=== PATIENT | male | born 1965 ===

== ENCOUNTER 2017-07-01 14:00 | Emergency (ER) | payer OTHER ==
[2017-07-01 14:19] VITALS: BP 142/86; PULSE 68; RESP 18; TEMP 96; O2SAT 100
--- NOTE | 2017-07-01 15:11 | ED PDOC ---
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 denies: Fever, Chills, Diarrhea, Back Pain, Chest Pain, Constipation, Urinary Symptoms Exacerbating Factors: None Alleviating Factors: None Last Bowel Movement: Yesterday Additional History Per: Patient Additional Complaint(s): no trauma no urinary or genital complaints Past Medical History Reviewed: Historical Data, Nursing Documentation, Vital Signs Vital Signs: Last Vital Signs Temp 96 F L 07/01/17 14:17 Pulse 68 07/01/17 14:17 Resp 18 07/01/17 14:17 BP 142/86 07/01/17 14:17 Pulse Ox 100 07/01/17 18:51 - Medical History PMH: No Chronic Diseases - Family History Family History: States: Unknown Family Hx - Living Arrangements Living Arrangements: With Family - Social History Current smoker - smoking cessation education provided: No Drugs: Denies - Home Medications Home Medications: Ambulatory Orders Medication Instructions Recorded Tamsulosin [Flomax] 0.4 mg PO DAILY #20 cap 07/01/17 oxyCODONE/Acetaminophen [Percocet 1 ea PO QID PRN #20 tab 07/01/17 5/325 mg Tab] - Allergies Allergies/Adverse Reactions: Allergies Allergy/AdvReac Type Severity Reaction Status Date / Time No Known Allergies Allergy Verified 07/01/17 14:17 Review of Systems ROS Statement: Except As Marked, All Systems Reviewed And Found Negative Constitutional: Negative for: Fever, Chills Cardiovascular: Negative for: Chest Pain, Palpitations Respiratory: Negative for: Cough, Shortness of Breath Gastrointestinal: Positive for: Nausea, Vomiting, Abdominal Pain. Negative for : Diarrhea, Constipation, Melena, Hematochezia, Hematemesis Genitourinary Male: Negative for: Dysuria, Penile Discharge, Scrotal Pain Neurological: Positive for: Dizziness. Negative for: Weakness, Numbness, Headache Physical Exam - Reviewed Nursing Documentation Reviewed: Yes Vital Signs Reviewed: Yes - Physical Exam Appears: Positive for: Uncomfortable Head Exam: Positive for: ATRAUMATIC, NORMAL INSPECTION, NORMOCEPHALIC Eye Exam: Positive for: Normal appearance, EOMI, PERRL Neck: Positive for: Normal, Painless ROM, Supple Cardiovascular/Chest: Positive for: Regular Rate, Rhythm, Chest Non Tender. Negative for: Edema, Gallop, Murmur, Bradycardia, Tachycardia Respiratory: Positive for: Normal Breath Sounds. Negative for: Decreased Breath Sounds, Accessory Muscle Use, Crackles, Rales, Rhonchi, Stridor, Wheezing Gastrointestinal/Abdominal: Positive for: Bowel Sounds, Soft, Tenderness (mod rlq). Negative for: Distended, Guarding, Rebound, Hernia, Asicites Male Genital Exam: Positive for: normal genitalia, other (chap by nurse). Negative for: inguinal tenderness, lesions, scrotum tenderness (R), scrotum tenderness (L), testicular tenderness (R), testicular tenderness (L), urethral discharge Back: Positive for: Normal Inspection. Negative for: L CVA Tenderness, R CVA Tenderness Extremity: Positive for: Normal ROM. Negative for: Tenderness, Pedal Edema, Calf Tenderness, Deformity, Swelling Neurologic/Psych: Positive for: Alert, freight delivery driver II-XII, Oriented, Gait (steady). Negative for: Motor/Sensory Deficits - Laboratory Results Result Diagrams: 07/01/17 15:30 07/01/17 15:30 - ECG ECG: Positive for: Interpreted By Me ECG Rhythm: Positive for: Normal QRS, Normal ST Segment, Sinus Rhythm (rate of 78), ST/T Changes Interpretation Of Abn EKG: no evidence of ischemia O2 Sat by Pulse Oximetry: 100 Pulse Ox Interpretation: Normal - Progress ED Course And Treament: PROCEDURE: CT Abdomen and Pelvis with contrast HISTORY: Right lower quadrant abdominal pain appendicitis, suspected COMPARISON: None. TECHNIQUE: Contrast dose: Radiation dose: Total exam DLP = mGy-cm. This CT exam was performed using one or more of the following dose reduction techniques: Automated exposure control, adjustment of the mA and/or kV according to patient size, and/or use of iterative reconstruction technique. FINDINGS: LOWER THORAX: Unremarkable. LIVER: Unremarkable. No gross lesion or ductal dilatation. GALLBLADDER AND BILE DUCTS: Unremarkable. PANCREAS: Unremarkable. No gross lesion or ductal dilatation. SPLEEN: Unremarkable. ADRENALS: Unremarkable. No mass. KIDNEYS AND URETERS: Right kidney in ureter: Proximal right ureteral calculus 4 x 7 mm. Mild right hydronephrosis identified. No upper tract calculi identified on the right. Left kidney: Punctate 3 mm calculus and adjacent smaller nonobstructing calculus lower pole left kidney. No evidence of left hydronephrosis or hydroureter. VASCULATURE: Unremarkable. No aortic aneurysm. BOWEL: Unremarkable. No obstruction. No gross mural thickening. APPENDIX: Normal appendixA normal appendix is identified. . PERITONEUM: Unremarkable. No free fluid. No free air. LYMPH NODES: Unremarkable. No enlarged lymph nodes. BLADDER: Unremarkable. REPRODUCTIVE: Unremarkable. BONES: No acute fracture. OTHER FINDINGS: None. IMPRESSION: 4 x 7 mm obstructing calculus proximal right ureter. Nonobstructing calculi lower pole left kidney Re-evaluation Time: 18:50 Condition: Improved Medical Decision Making Medical Decision Making: discussed with uzma hernandez f/u in office. advise percocet and flomax for pain. repeat abd exam revelas no tenderness. pt agree's with plan and leaves ambulatory and in good spirits. Disposition - Clinical Impression Clinical Impression: Renal calculus, right - Patient ED Disposition Is Patient to be Admitted: No Counseled Patient/Family Regarding: Studies Performed, Diagnosis, Need For Followup, Rx Given - Disposition Referrals: [facility] [place] [Outside] (2 to 3 days) Vivienne Elliott MD [Medical Doctor] - (2 to 3 days) Disposition: Routine/Home Disposition Time: 18:55 Condition: GOOD Prescriptions: oxyCODONE/Acetaminophen [Percocet 5/325 mg Tab] 1 ea PO QID PRN #20 tab PRN Reason: Pain, Moderate (4-7) Tamsulosin [Flomax] 0.4 mg PO DAILY #20 cap Instructions: Renal Colic (ED) Forms: [email or web address] (Jamaican), [facility] ED School/Work Excuse Print Language: LATVIAN
[2017-07-01 15:34] LABS: BASO # 0.1 K/uL (0.0-0.2); BASO % 0.5 % (0.0-2.0); EOS % 0.1 % (0.0-4.0); HEMATOCRIT 46.9 % (35.0-51.0); LYMPH # 1.9 K/uL (1.0-4.3); LYMPH % 15.4 % (20.0-40.0); MEAN CELL VOLUME 93.7 fl (80.0-94.0); MEAN CORPUSCULAR HEMOGLOBIN 32.2 pg (27.0-31.0); MEAN CORPUSCULAR HGB CONC 34.4 g/dL (33.0-37.0); MONO # 0.8 K/uL (0.0-0.8); MONO % 6.3 % (0.0-10.0); NEUT # 9.6 K/uL (1.8-7.0); NEUT % 77.7 % (50.0-75.0); NRBC % 0.1 % (0.0-0.0); RED CELL DISTRIBUTION WIDTH 13.1 % (11.5-14.5); WHITE BLOOD COUNT 12.3 K/uL (4.8-10.8)
[2017-07-01 15:47] LABS: PARTIAL THROMBOPLASTIN TIME 25.8 Seconds (25.6-37.1)
[2017-07-01 15:58] LABS: ALB/GLOB RATIO 1.3 (1.0-2.1); ALKALINE PHOSPHATASE 60 U/L (38-126); ALT/SGPT 53 U/L (21-72); AMYLASE 124 U/L (30-110); AST/SGOT 54 U/L (17-59); BILIRUBIN,TOTAL 1.6 mg/dl (0.2-1.3); BLOOD UREA NITROGEN 18 mg/dl (9-20); CALCIUM 9.9 mg/dL (8.4-10.2); CARBON DIOXIDE 24 mmol/L (22-30); CHLORIDE 106 mmol/L (98-107); GFR AFRICAN-AMERICAN > 60; GLUCOSE,RANDOM 118 mg/dL (75-110); LIPASE 160 U/L (23-300); SODIUM 143 mmol/l (132-148); TOTAL PROTEIN 9.2 G/DL (6.3-8.2)
[2017-07-01 16:16] LABS: POTASSIUM 5.7 MMOL/L (3.6-5.0)
[2017-07-01] MEDS ORDERED: Iohexol 300 100 ML IJ ONE (17:33)
[2017-07-01] MEDS ORDERED: Sodium Chloride 0.9% 50 ML IV ONE (17:33)
--- NOTE | 2017-07-01 18:44 | CT ---
PROCEDURE: CT Abdomen and Pelvis with contrast HISTORY: Right lower quadrant abdominal pain appendicitis, suspected COMPARISON: None. TECHNIQUE: Contrast dose: Radiation dose: Total exam DLP = mGy-cm. This CT exam was performed using one or more of the following dose reduction techniques: Automated exposure control, adjustment of the mA and/or kV according to patient size, and/or use of iterative reconstruction technique. FINDINGS: LOWER THORAX: Unremarkable. LIVER: Unremarkable. No gross lesion or ductal dilatation. GALLBLADDER AND BILE DUCTS: Unremarkable. PANCREAS: Unremarkable. No gross lesion or ductal dilatation. SPLEEN: Unremarkable. ADRENALS: Unremarkable. No mass. KIDNEYS AND URETERS: Right kidney in ureter: Proximal right ureteral calculus 4 x 7 mm. Mild right hydronephrosis identified. No upper tract calculi identified on the right. Left kidney: Punctate 3 mm calculus and adjacent smaller nonobstructing calculus lower pole left kidney. No evidence of left hydronephrosis or hydroureter. VASCULATURE: Unremarkable. No aortic aneurysm. BOWEL: Unremarkable. No obstruction. No gross mural thickening. APPENDIX: Normal appendixA normal appendix is identified. . PERITONEUM: Unremarkable. No free fluid. No free air. LYMPH NODES: Unremarkable. No enlarged lymph nodes. BLADDER: Unremarkable. REPRODUCTIVE: Unremarkable. BONES: No acute fracture. OTHER FINDINGS: None. IMPRESSION: 4 x 7 mm obstructing calculus proximal right ureter. Nonobstructing calculi lower pole left kidney.
[2017-07-01 20:09] LABS: RBC URINE 16 /hpf (0-3); URINE BILIRUBIN NEGATIVE (NEGATIVE); URINE BLOOD MODERATE (NEGATIVE); URINE COLOR YELLOW (YELLOW); URINE GLUCOSE (UA) NEG (Normal); URINE KETONE NEGATIVE (NEGATIVE); URINE LEUKOCYTE ESTERASE NEG Leu/uL (Negative); URINE PROTEIN 30 mg/dL (NEGATIVE); URINE UROBILINOGEN 0.2-1.0 mg/dL (0.2-1.0); WBC URINE 3 /hpf (0-5)
--- NOTE | 2017-07-02 08:25 | CARD ---
APPROVED REPORT EKG Measurement Heart [id number] <Conclusion> Normal sinus rhythm Possible Left atrial enlargement Left ventricular hypertrophy Abnormal ECG
== END 2017-07-01 19:55 | disposition home or self-care (01) ==
LOC: H.ER 14:00
DX: N20.0 Calculus of kidney (principal)
CPT/HCPCS: 74177; 80053; 81003; 82150; 83690; 84484; 85025; 85610; 85730; 93005; 96374; 99282; J2270; Q9967

== ENCOUNTER 2017-07-30 18:38 | Emergency (ER) | payer OTHER ==
[2017-07-30] MEDS ORDERED: Sodium Chloride 0.9% 1,000 ML IV STA (19:28)
--- NOTE | 2017-07-30 19:34 | ED PDOC ---
HPI: Male Pain Time Seen by Provider: 07/30/17 19:20 Chief Complaint (Nursing): Male Genitourinary Chief Complaint (Provider): Male Genitourinary History Per: Patient History/Exam Limitations: no limitations Onset/Duration Of Symptoms: Persistent (since 07/01) Current Symptoms Are (Timing): Still Present Additional Complaint(s): Gamal Vásquez is a 52 year old male who presents to the ED complaining of persistent dysuria since 07/01. Patient was seen in ED 07/01 and given antibiotics prescription, but pain persisted prompting current ED visit. Confirms burning pain upon urination. PMD: Non-[facility] Provider Past Medical History Reviewed: Historical Data, Nursing Documentation, Vital Signs Vital Signs: Last Vital Signs Temp 99.2 F 07/30/17 19:05 Pulse 82 07/30/17 19:05 Resp 16 07/30/17 19:05 BP 111/68 07/30/17 19:05 Pulse Ox 98 07/30/17 19:05 - Surgical History Other surgeries: Lt tibia - Family History Family History: States: Unknown Family Hx - Social History Current smoker - smoking cessation education provided: No Alcohol: Occasional Drugs: Denies - Home Medications Home Medications: Ambulatory Orders Medication Instructions Recorded Tamsulosin [Flomax] 0.4 mg PO DAILY #20 cap 07/01/17 oxyCODONE/Acetaminophen [Percocet 1 ea PO QID PRN #20 tab 07/01/17 5/325 mg Tab] Ciprofloxacin HCl [Cipro] 500 mg PO BID #14 tablet 07/30/17 Naproxen 1 tab PO Q12 PRN #14 tab 07/30/17 Tamsulosin [Flomax] 0.4 mg PO DAILY #15 cap 07/30/17 - Allergies Allergies/Adverse Reactions: Allergies Allergy/AdvReac Type Severity Reaction Status Date / Time No Known Allergies Allergy Verified 07/30/17 19:05 Review of Systems ROS Statement: Except As Marked, All Systems Reviewed And Found Negative Genitourinary Male: Positive for: Dysuria (Burning) Physical Exam - Reviewed Nursing Documentation Reviewed: Yes Vital Signs Reviewed: Yes - Physical Exam Appears: Positive for: Well, Non-toxic, No Acute Distress Head Exam: Positive for: ATRAUMATIC, NORMAL INSPECTION, NORMOCEPHALIC Skin: Positive for: Normal Color. Negative for: Rash Eye Exam: Positive for: Normal appearance Gastrointestinal/Abdominal: Positive for: Tenderness (Minimal) Back: Negative for: L CVA Tenderness, R CVA Tenderness Neurologic/Psych: Positive for: Alert, Oriented - Laboratory Results Result Diagrams: 07/30/17 20:10 07/30/17 20:10 - ECG O2 Sat by Pulse Oximetry: 98 (RA) Pulse Ox Interpretation: Normal - Progress ED Course And Treament: ultrasound renal demonstrates no hydronephrosis. no obvious renal calculi noted. d/w Dr. Blanco. Recommends ct abd/pelvis r/o kidney stone IMPRESSION: Mild right-sided hydroureteronephrosis secondary to a 6 mm stone in the distal right ureter. This represents further migration of the stone identified in the proximal ureter on examination dated 07/01/2017. Thank you for allowing us to participate in the care of your patient. Dictated and Authenticated by: Alize Wayne MD Medical Decision Making Medical Decision Making: Time: 19:26 Initial Impression: Kidney stone Plan: --CMP --CBC --Sodium Chloride 0.9% 1,000 ml IV --Toradol 15 mg IVP --Urine culture --Urinalysis --US Renal --Reevaluation Scribe Attestation: Documented by Homero Yee, acting as a scribe for Ximena Morfin PA-C Provider Scribe Attestation: All medical record entries made by the Scribe were at my direction and personally dictated by me. I have reviewed the chart and agree that the record accurately reflects my personal performance of the history, physical exam, medical decision making, and the department course for this patient. I have also personally directed, reviewed, and agree with the discharge instructions and disposition. Disposition - Clinical Impression Clinical Impression: Renal calculus, right - Patient ED Disposition Is Patient to be Admitted: No - Disposition Referrals: Ritesh Blanco Jr., MD [Staff Provider] - Disposition: Routine/Home Disposition Time: 22:46 Condition: FAIR Prescriptions: Ciprofloxacin HCl [Cipro] 500 mg PO BID #14 tablet Naproxen 1 tab PO Q12 PRN #14 tab PRN Reason: Pain, Moderate (4-7) Tamsulosin [Flomax] 0.4 mg PO DAILY #15 cap Instructions: Kidney Stones (ED), Renal Colic (ED) Forms: [employer] (Latvian) Print Language: FRENCH
[2017-07-30 20:17] LABS: BASO % 0.6 % (0.0-2.0); EOS # 0.1 K/uL (0.0-0.7); EOS % 1.2 % (0.0-4.0); HEMATOCRIT 45.7 % (35.0-51.0); LYMPH # 2.3 K/uL (1.0-4.3); LYMPH % 36.4 % (20.0-40.0); MEAN CELL VOLUME 91.8 fl (80.0-94.0); MEAN CORPUSCULAR HEMOGLOBIN 32.1 pg (27.0-31.0); MEAN PLATELET VOLUME 8.4 fl (7.2-11.7); MONO # 0.7 K/uL (0.0-0.8); MONO % 10.5 % (0.0-10.0); NEUT # 3.2 K/uL (1.8-7.0); NEUT % 51.3 % (50.0-75.0); NRBC % 0.1 % (0.0-0.0); WHITE BLOOD COUNT 6.3 K/uL (4.8-10.8)
[2017-07-30 20:18] LABS: RBC URINE 7 /hpf (0-3); URINE BILIRUBIN NEGATIVE (NEGATIVE); URINE BLOOD SMALL (NEGATIVE); URINE COLOR STRAW (YELLOW); URINE GLUCOSE (UA) NEG (Normal); URINE KETONE NEGATIVE (NEGATIVE); URINE LEUKOCYTE ESTERASE NEG Leu/uL (Negative); URINE PROTEIN NEGATIVE (NEGATIVE); URINE UROBILINOGEN 0.2-1.0 mg/dL (0.2-1.0); WBC URINE 2 /hpf (0-5)
[2017-07-30 20:29] LABS: ALKALINE PHOSPHATASE 56 U/L (38-126); ALT/SGPT 85 U/L (21-72); AST/SGOT 36 U/L (17-59); BILIRUBIN,TOTAL 0.9 mg/dl (0.2-1.3); BLOOD UREA NITROGEN 8 mg/dl (9-20); CALCIUM 9.5 mg/dL (8.4-10.2); CARBON DIOXIDE 27 mmol/L (22-30); CHLORIDE 102 mmol/L (98-107); GFR AFRICAN-AMERICAN > 60; GLUCOSE,RANDOM 126 mg/dL (75-110); POTASSIUM 4.1 MMOL/L (3.6-5.0); SODIUM 141 mmol/l (132-148); TOTAL PROTEIN 8.3 G/DL (6.3-8.2)
[2017-07-30 21:03] LABS: ALB/GLOB RATIO 1.3 (1.0-2.1)
--- NOTE | 2017-07-30 21:41 | US ---
EXAM: US Retroperitoneal Limited, Renal CLINICAL HISTORY: 52 years old, male; Pain; Abdominal pain; Other: HX renal stone; Additional info: Kidney stone right side TECHNIQUE: Real-time ultrasound of the retroperitoneum (limited) with image documentation. COMPARISON: No relevant prior studies available. FINDINGS: Right kidney: Unremarkable in echogenicity and size measuring 11.1 x 4.4 x 5.0 cm. No stones. No solid mass. No hydronephrosis. Left kidney: Unremarkable in echogenicity and size measuring 10.9 x 5.5 x 5.3 cm. No stones. No solid mass. No hydronephrosis. IMPRESSION: Normal retroperitoneal ultrasound.
--- NOTE | 2017-07-30 22:24 | CT ---
EXAM: CT Abdomen and Pelvis Without Intravenous Contrast CLINICAL HISTORY: 52 years old, male; Pain; Other: Painful urination; Additional info: R/O kidney stone TECHNIQUE: Axial computed tomography images of the abdomen and pelvis without intravenous contrast. All CT scans at this facility use one or more dose reduction techniques, viz.: automated exposure control; ma/kV adjustment per patient size (including targeted exams where dose is matched to indication; i.e. head); or iterative reconstruction technique. Coronal and sagittal reformatted images were created and reviewed. COMPARISON: CT - ABD PELVIS IV CONTRAST ONLY 2017-07-01 17:33 FINDINGS: Lower thorax: The bilateral lung bases are clear. ABDOMEN: Liver: No acute findings Gallbladder and bile ducts: No acute finding. No calcified stones. No intra-extrahepatic biliary ductal dilation. Pancreas: Limited evaluation secondary to the lack of intravenous contrast. Spleen: No acute findings. Adrenals: No acute findings. Kidneys and ureters: Mild right-sided hydroureteronephrosis extending to the distal right ureter where a 6 mm stone is identified. When compared with previous imaging performed 07/01/2017 this represents further migration of the proximal right ureteral stone, seen on the earlier examination. Multiple 1-2 mm nonobstructing stones are identified within the lower pole of the left kidney. PELVIS: Bladder: No acute findings. Reproductive: No acute findings. Appendix: The appendix is of normal-caliber (series 3, image 113). ABDOMEN and PELVIS: Stomach and bowel: No acute findings. Peritoneum: No acute findings. Lymph nodes: Limited evaluation without intravenous contrast. Vasculature: No aortic aneurysm. Bones: No acute fracture. IMPRESSION: Mild right-sided hydroureteronephrosis secondary to a 6 mm stone in the distal right ureter. This represents further migration of the stone identified in the proximal ureter on examination dated 07/01/2017.
[2017-07-30] MEDS ORDERED: Oxycodone/Acetaminophen 5/325 mg Tab ONE (23:16)
[2017-07-30] MEDS ORDERED: Oxycodone/Acetaminophen 5/325 mg Tab PO STA (23:18)
[2017-07-30 23:20] VITALS: BP 109/73; PULSE 70; RESP 18; TEMP 97.8; O2SAT 100
== END 2017-07-30 23:47 | disposition home or self-care (01) ==
LOC: H.ER 18:38
DX: N13.2 Hydronephrosis with renal and ureteral calculous obstruction (principal); Z87.442 Personal history of urinary calculi
CPT/HCPCS: 74176; 76770; 80053; 81003; 85025; 87086; 96374; 99283; J1885; J7040